=== PATIENT | male | born 1975 | race Caucasian/White ===

== ENCOUNTER 2021-10-05 19:17 | Emergency (ER) | payer MEDICARE, SELFPAY ==
[2021-10-05 19:18] VITALS: BP 140/86; PULSE 88; RESP 20; TEMP 35.7; O2SAT 96; BMI 37.9
[2021-10-05 19:32] VITALS: TEMP 36.9; O2SAT 95
--- NOTE | 2021-10-05 19:34 | EDS_ITS ---
HPI HPI - URI History of Present Illness Chief Complaint: Shortness of Breath Narrative Narrative: 46-year-old male presenting on day 6 of Covid 19 symptoms. He said he is not had a fever. He does admit to a cough and body aches and chills. He has mild shortness of breath at times. He does not have any chest pain. He states his chest does feel raspy sometimes. No nausea or vomiting. He did not home test which was positive. Patient was not vaccinated for COVID-19. ROS ROS ED Constitutional Constitutional ED: Reports chills; Denies fever(s) Eyes Eyes: Denies blurry vision or diplopia ENT ENT ED: Reports sore throat; Denies rhinorrhea Cardiovascular Cardiovascular: Denies chest pain or palpitations Respiratory/Chest Respiratory/Chest: Reports cough and dyspnea Gastrointestinal Gastrointestinal: Denies abdominal pain or nausea Genitourinary Genitourinary ED: Denies dysuria or hematuria Musculoskeletal Musculoskeletal: Reports myalgias; Denies arthralgias, back pain or neck pain Integumentary Denies rash Neurologic Neurologic: Denies headache(s), paresthesias or weakness Psychiatric Psychiatric: Denies anxiety or depression PFSH PFSH Allergy/AdvReac Type Severity Reaction Status Date / Time meperidine [From Demerol] AdvReac Other Verified 10/05/21 19:20 Surgical History (Updated 10/05/21 @ 19:35 by Oanh Dueñas) History of back surgery Social History Smoking Status: Never smoker EXAM Physical Exam Const Vital Signs: 10/05/21 19:18 10/05/21 19:32 10/05/21 20:03 Temperature 96.2 F L 98.5 F Temperature Source Temporal Oral Pulse Rate 88 87 Respiratory Rate 20 H Respiratory Effort Normal Non-Labored Respiratory Depth Normal Respiratory Pattern Normal Blood Pressure 140/86 H Blood Pressure Mean 104 Pulse Ox 96 95 Oxygen Delivery Method Room Air Room Air Positive well nourished General Appearance ED: NAD; Negative for pallor HEENT Reports moist mucous membranes normocephalic and atraumatic Eyes PERRL and EOMs intact bilaterally General Eye ED: Negative for pale conjunctiva or scleral icterus Resp normal respiratory effort and clear to auscultation bilaterally Cardio Rate: regular rate Rhythm: regular rhythm Neuro oriented x3 and CN's II-XII intact bilaterally Sensorium / Orientation: alert Psych mental status grossly normal Skin General Skin Exam: Negative for jaundice or pallor Rashes: no rashes MDM MDM MDM Narrative Medical decision making narrative: Patient presenting on day 6 of COVID-19 symptoms. I doubt home test. He was not vaccinated for COVID-19. He does not have severe symptoms and I do not believe he needs a work-up. He does wish to be referred for the monoclonal antibodies so I ordered a rapid Covid test and this was positive. Patient will be referred for monoclonal antibodies. Patient is discharged home in stable condition and he is given return precautions. Impression: 1. COVID-19 Discharge Plan Triage Chief Complaint: Shortness of Breath ED Provider: Timothy Weir Dx/Rx/DC Orders Instructions: Coronavirus Disease 2019 (COVID-19): Caring for Yourself or Others, ED - COVID Monoclonal AB Infusion ... Other Ambulatory Orders: COVID Outpatient Monoclonal Antibody Referral (Routine) Timeframe: 1 Day Facility: [facility] - Location: [facility] Ordered By: Dr. Timothy Weir Primary Care Provider: Care Physician,No Primary Referrals: Elmer Daigle MD [STAFF PHYSICIAN] - As soon as possible Care Physician,No Primary [Primary Care Provider] - Disposition Disposition: Home, Self Care Discharge Date/Time: 10/05/21 20:04
[2021-10-05 20:03] VITALS: PULSE 87; O2SAT 95
== END 2021-10-05 20:04 | disposition home or self-care (01) ==
PROVIDERS: Emergency Provider Student in an Organized Health Care Education/Training Program
DX: U07.1 COVID-19 (principal)
CPT/HCPCS: 87426; 99282

== ENCOUNTER 2021-10-08 15:54 | Outpatient (CLI) | payer SELFPAY ==
[2021-10-08 16:11] VITALS: BP 132/93; PULSE 81; RESP 18; TEMP 36.8; O2SAT 92; BMI 37.3
[2021-10-08] MEDS: 0.9% Saline Lock 10 ML Syringe IV (16:13)
[2021-10-08 17:14] VITALS: BP 148/98; PULSE 78; RESP 18; TEMP 37; O2SAT 93
[2021-10-08 18:14] VITALS: BP 142/97; PULSE 84; RESP 16; TEMP 37.3; O2SAT 93
== END 2021-10-08 18:15 | disposition home or self-care (01) ==
LOC: MS3OUT 15:54 → MS3 15:55
PROVIDERS: Visit Provider Nurse Practitioner Adult Health
DX: Z23 Encounter for immunization (principal); U07.1 COVID-19
CPT/HCPCS: J7050; M0245; Q0245; A4216